=== PATIENT | female | born 1955 | race Caucasian/White ===

== ENCOUNTER 2018-12-04 19:55 | Emergency (ER) | payer OTHER, SELFPAY ==
[2018-12-04] VITALS (10 sets, daily range): BP systolic 87–120; BP diastolic 42–66; PULSE 84–102; RESP 16–17; TEMP 36.4–37; O2SAT 95–100; BMI 32.4
--- NOTE | 2018-12-04 20:22 | DI.CT.S_ITS ---
PROCEDURE: CT ABDOMEN PELVIS W CON INDICATIONS: severe pain, hx diverticulitis, failed outpatient TECHNIQUE: After the administration of intravenous contrast, 5 mm thick sections acquired from the diaphragm to the symphysis. 5 mm coronal and sagittal reformats were acquired. For radiation dose reduction, the following was used: automated exposure control, adjustment of mA and/or kV according to patient size. COMPARISON: None. FINDINGS: Image quality: Excellent. ABDOMEN: Lung bases: Lung bases are clear. Heart size is normal. Solid organs: Liver is normal in size and enhancement. Gallbladder is surgically absent. Biliary system is non dilated. Pancreas enhances normally. Spleen is normal in size and enhancement. No adrenal nodules. Kidneys demonstrate normal size and enhancement, without hydronephrosis. Peritoneum and bowel: There is no bowel obstruction. No stomach or small bowel wall thickening. Colonic diverticulosis is seen. There is short segmental wall thickening involving distal descending colon/proximal sigmoid colon with narrowing of the lumen and pericolonic fat stranding consistent with acute diverticulitis in this region. No abscess collection. No free fluid or free air. Nodes and vessels: No retroperitoneal or mesenteric adenopathy by size criteria. Aorta and inferior vena cava are normal in size. Miscellaneous: No ventral hernias. PELVIS: Genitourinary: Bladder wall thickness is normal. Uterus and bilateral adnexa shows no gross abnormality. Miscellaneous: No inguinal hernias or adenopathy. Bones: No suspicious bony lesions. No vertebral body compression fractures. IMPRESSION: 1. Findings consistent with acute diverticulitis involving distal descending colon/proximal sigmoid colon. No abscess collection. No signs of perforation. No free fluid or free air. 2. No renal stone hydronephrosis. Prior cholecystectomy. Dictated by: Severo Rich M.D. on 12/04/2018 at 21:33 Approved by: Severo Rich M.D. on 12/04/2018 at 21:35
[2018-12-04 20:30] LABS: Add Manual Diff / Slide Review NO; Basophils Absolute Auto 100 /uL (0-100); Basophils Percent Auto 0.5 % (0-2); Eosinophils Absolute Auto 100 /uL (0-450); Eosinophils Percent Auto 0.6 % (2-4); Hematocrit 41.1 % (36-46); Lymphocytes Absolute Auto 1900 /uL (1100-4500); Lymphocytes Percent Auto 11.1 % (25-40); Mean Corpuscular Hemoglobin 30.6 PG (26-34); Mean Corpuscular Volume 89.9 fL (80-100); Monocytes Absolute Auto 1200 /uL (0-900); Monocytes Percent Auto 7.4 % (3-14); Neutrophils Absolute Auto 13500 /uL (1500-7000); Neutrophils Percent Auto 80.4 % (50-75); Platelet Count 260 X10^3/uL (150-400); Red Blood Cell Count 4.58 X10^6/uL (4.0-5.2); Red Cell Distribution Width 13.3 % (11.6-14.8); White Blood Cell Count 16.8 X10^3/uL (4.5-11.0)
[2018-12-04 20:38] LABS: Lactate (Lactic Acid) 1.5 mmol/L (0.7-2.1)
[2018-12-04 20:39] LABS: Alanine Aminotransferase 33 IU/L (9-52); Albumin Globulin Ratio 1.3 (1.0-2.8); Alkaline Phosphatase 80 U/L (38-126); Aspartate Aminotransferase 29 IU/L (14-36); BUN Creatinine Ratio 16.7 (6-22); Bilirubin Total 0.5 mg/dL (0.2-1.3); Blood Urea Nitrogen 10 mg/dL (7-17); Calcium 9.2 mg/dL (8.4-10.2); Carbon Dioxide 28 mmol/L (22-32); Chloride 103 mmol/L (98-107); Estimated Glomerular Filt Rate > 60.0 mL/min (>60); Globulin 3.1 g/dL (1.7-4.1); Glucose 129 mg/dL (80-110); HEMOLYSIS < 15 (0-50); Lipase 109 U/L (23-300); Potassium 4.1 mmol/L (3.4-5.1); Sodium 137 mmol/L (137-145); Total Protein 7.1 g/dL (6.3-8.2)
[2018-12-04] MEDS: SODIUM CHLORIDE 0.9% 1,000 ML 1000 ML IV ×3 (20:48→23:40)
[2018-12-04] MEDS: ONDANSETRON 4 MG/2 ML INJ IV (20:51)
[2018-12-04] MEDS: HYDROMORPHONE 1 MG INJ 0.5 MG IV (20:51)
--- NOTE | 2018-12-04 21:03 | ED_ITS ---
HPI - Abdominal Pain General Chief Complaint: Abdominal Pain Stated Complaint: states diverticulitis Time Seen by Provider: 12/04/18 20:10 Source: patient and family Mode of arrival: ambulatory Limitations: no limitations History of Present Illness HPI narrative: 63F nonsmoker with hx of diverticulitis and hypothyroidism presents with severe LLQ pain since yesterday. She denies radiation. Her pain is worse with motion and improves with rest. She's had no N/V/D. She denies dysuria, vaginal bleeding or discharge. She's had diverticulitis in the past and this feels similar. [facility] and started on Augmentin. She went back today with worsening pain and feeling poorly. She was sent here from the clinic for a more thorough work up. MD complaint: abdominal pain Related Data Home Medications Medication Instructions Recorded Confirmed levothyroxine 137 mcg tablet 137 mcg PO DAILY 12/03/18 12/03/18 Previous Rx's Medication Instructions Recorded amoxicillin 875 mg-potassium 1 tab PO TID 7 Days #21 tab 12/03/18 clavulanate 125 mg tablet ibuprofen 600 mg tablet 600 mg PO TID PRN 5 Days #20 tab 12/03/18 ciprofloxacin HCl 500 mg PO Q12H 14 Days #28 tab 12/05/18 hydrocodone-acetaminophen 1 tab PO Q4-6H PRN #10 tab 12/05/18 metronidazole [Flagyl] 500 mg PO TID 14 Days #42 tab 12/05/18 ondansetron 4 mg PO TID-QID PRN #10 tab 12/05/18 Allergies Allergy/AdvReac Type Severity Reaction Status Date / Time No Known Drug Allergies Allergy Verified 12/03/18 15:26 Review of Systems Constitutional Denies chills, Denies fever(s), Denies lethargy and Denies weakness Eyes Denies change in vision, Denies eye discharge, Denies irritation and Denies loss of vision ENT Ears, Nose, Mouth, and Throat: Denies change in voice, Denies neck pain and Denies sore throat Cardiovascular Denies chest pain, Denies irregular heart rhythm, Denies lightheadedness, Denies palpitations, Denies dyspnea, Denies dyspnea on exertion and Denies orthopnea Respiratory Denies cough, Denies dyspnea, Denies dyspnea on exertion and Denies wheezing Gastrointestinal Gastrointestinal: Reports abdominal pain, Denies change in bowel habits, Denies diarrhea, Denies nausea and Denies vomiting Genitourinary Denies hematuria, Denies flank pain, Denies urinary incontinence and Denies urinary urgency Musculoskeletal Denies neck pain Integumentary/Breasts Denies pruritus, Denies erythema, Denies rash and Denies wounds Neurologic Denies confusion, Denies loss of vision and Denies weakness Psychiatric Denies anxiety, Denies confusion, Denies depression, Denies homicidal ideation and Denies suicidal ideation Endocrine Denies palpitations Hematologic/Lymphatic Denies easy bruising Allergic/Immunologic Denies wheezing PFSH Social History Smoking Status: Never smoker Social History Smoking Status: Never smoker Exam Narrative Exam Narrative: GENERAL: 63F appears younger than stated age, obviously uncomfortable, rubbing her LLQ HEAD: Atraumatic. Normocephalic. No temporal or scalp tenderness. EYES: Pupils equal round and reactive. Extraocular motions intact. No scleral icterus. No injection or drainage. ENT: Nose without bleeding, purulent drainage or septal hematoma. Throat without erythema, tonsillar hypertrophy or exudate. Uvula midline. Airway patent. NECK: Trachea midline. No JVD or lymphadenopathy. Supple, nontender, no meningeal signs. CARDIOVASCULAR: Regular rate and rhythm without murmurs, gallops, or rubs. RESPIRATORY: Clear to auscultation. Breath sounds equal bilaterally. No wheezes, rales, or rhonchi. GASTROINTESTINAL: Abdomen soft, tender LLQ, nondistended. No hepato- splenomegaly, or palpable masses. No guarding. EXTREMITIES: No clubbing, cyanosis, or edema. No joint tenderness, effusion, or edema noted. BACK: Nontender without deformity or crepitance. No flank tenderness. NEURO: AOx3. SKIN: No rash or erythema. Initial Vital Signs Initial Vital Signs: Vital Signs Temperature 98.5 F 12/04/18 19:59 Pulse Rate 102 H 12/04/18 19:59 Respiratory Rate 16 12/04/18 19:59 Blood Pressure 120/64 12/04/18 19:59 Pulse Oximetry 95 12/04/18 19:59 Course Orders Ordered: ED Orders 12/04/18 20:12 Complete Blood Count AUTO DIFF Stat Comprehensive Metabolic Panel Stat Lactate (Lactic Acid) Stat Lipase Stat 12/04/18 20:22 CT abdomen pelvis w con Stat 12/04/18 21:45 Blood Culture Stat Discontinued Medications Hydrocodone Bitart/Acetaminophen (Vicodin Prepack) 1 bottle MISC SEEINSTR ONE Stop: 12/05/18 00:11 Last Admin: 12/05/18 00:16 Dose: 1 bottle Hydromorphone HCl (Dilaudid) 0.5 mg IV NOW ONE Stop: 12/04/18 20:50 Last Admin: 12/04/18 20:51 Dose: 0.5 mg Sodium Chloride (Normal Saline 0.9%) 1,000 mls @ 1,000 mls/hr IV BOLUS ONE Stop: 12/04/18 21:20 Last Infusion: 12/04/18 22:27 Dose: 0 mls/hr Infusion: 12/04/18 21:19 Dose: 0 mls/hr Admin: 12/04/18 20:48 Dose: 1,000 mls/hr Sodium Chloride (Normal Saline 0.9%) 1,000 mls @ 1,000 mls/hr IV BOLUS ONE Stop: 12/04/18 23:25 Last Infusion: 12/04/18 23:39 Dose: 0 mls/hr Admin: 12/04/18 22:30 Dose: 1,000 mls/hr Sodium Chloride (Normal Saline 0.9%) 1,000 mls @ 1,000 mls/hr IV BOLUS ONE Stop: 12/05/18 00:39 Last Infusion: 12/05/18 00:29 Dose: 0 mls/hr Admin: 12/04/18 23:40 Dose: 1,000 mls/hr Levofloxacin (Levaquin) 500 mg PO NOW ONE Stop: 12/05/18 00:11 Last Admin: 12/05/18 00:16 Dose: 500 mg Ondansetron HCl (Zofran) 4 mg IV Q4HR PRN PRN Reason: Nausea And Vomiting Last Admin: 12/04/18 20:51 Dose: 4 mg Ondansetron HCl (Zofran Odt Prepack) 1 bottle MISC SEEINSTR ONE Stop: 12/05/18 00:11 Last Admin: 12/05/18 00:16 Dose: 1 bottle Vital Signs - 8 hr 12/04/18 19:59 12/04/18 21:07 12/04/18 21:51 Temperature 98.5 F 98.6 F 97.9 F Pulse Rate 102 H 89 89 Respiratory Rate 16 16 17 Blood Pressure 120/64 Blood Pressure [Left Arm] 99/53 L 92/56 L Pulse Oximetry 95 96 98 12/04/18 22:24 12/04/18 22:30 12/04/18 22:57 Temperature 97.6 F Pulse Rate 93 H 90 88 Respiratory Rate 16 16 16 Blood Pressure Blood Pressure [Left Arm] 87/42 L 89/52 L 92/57 L Pulse Oximetry 97 98 96 12/04/18 23:05 12/04/18 23:10 12/04/18 23:30 Temperature 97.8 F Pulse Rate 87 84 86 Respiratory Rate 16 16 16 Blood Pressure Blood Pressure [Left Arm] 98/64 102/57 L 92/61 Pulse Oximetry 100 100 99 12/04/18 23:40 12/05/18 00:00 Temperature 97.9 F Pulse Rate 86 87 Respiratory Rate 16 16 Blood Pressure Blood Pressure [Left Arm] 97/66 114/74 Pulse Oximetry 99 100 MDM - Abdominal Pain Lab Data Result diagrams: 12/04/18 20:12 12/04/18 20:12 Lab Results 12/04/18 12/04/18 12/04/18 Range/Units 20:12 20:12 20:12 WBC 16.8 H (4.5-11.0) X10^3/uL RBC 4.58 (4.0-5.2) X10^6/uL Hgb 14.0 (12.0-16.0) g/dL Hct 41.1 (36-46) % MCV 89.9 (80-100) fL MCH 30.6 (26-34) PG MCHC 34.0 (30-36) % RDW 13.3 (11.6-14.8) % Plt Count 260 (150-400) X10^3/uL Neut % (Auto) 80.4 H (50-75) % Lymph % (Auto) 11.1 L (25-40) % [place] % (Auto) 7.4 (3-14) % Eos % (Auto) 0.6 L (2-4) % Baso % (Auto) 0.5 (0-2) % Neut # (Auto) 98074 H (1522-4712) /uL Lymph # (Auto) 1900 (3877-6981) /uL [place] # (Auto) 1200 H (0-900) /uL Eos # (Auto) 100 (0-450) /uL Baso # (Auto) 100 (0-100) /uL Sodium 137 (137-145) mmol/L Potassium 4.1 (3.4-5.1) mmol/L Chloride 103 (98-107) mmol/L Carbon Dioxide 28 (22-32) mmol/L BUN 10 (7-17) mg/dL Creatinine 0.60 (0.52-1.04) mg/dL Estimated GFR > 60.0 (>60) mL/min BUN/Creatinine Ratio 16.7 (6-22) Glucose 129 H (80-110) mg/dL Lactate 1.5 (0.7-2.1) mmol/L Calcium 9.2 (8.4-10.2) mg/dL Total Bilirubin 0.5 (0.2-1.3) mg/dL AST 29 (14-36) IU/L ALT 33 (9-52) IU/L Alkaline Phosphatase 80 (38-126) U/L Total Protein 7.1 (6.3-8.2) g/dL Albumin 4.0 (3.5-5.0) g/dL Globulin 3.1 (1.7-4.1) g/dL Albumin/Globulin Ratio 1.3 (1.0-2.8) Lipase 109 (23-300) U/L Point of care testing: Urine Dip Bedside Urine Glucose Negative Bedside Urine Bilirubin - Negative Bedside Urine Ketone - Negative Urine Specific [place] 1.010 Bedside Urine Occult Blood - Negative Bedside Urine pH 7.0 Bedside Urine Protein - Negative Bedside Urine Urobilinogen - Negative Bedside Urine Nitrite - Negative Bedside Urine Leukocytes - Negative Esterase Imaging Data CT scan - abdomen: Radiologist's impression: diverticulitis without perforation or abscess Discharge Plan Departure Patient Disposition: Home Clinical Impression: Diverticulitis Discharge Date/Time: 12/05/18 00:31 Interventions: ED Discharge Assessment Last Done: 12/05/18 00:30 Instructions: Diverticulitis Activity Restrictions/Additional Instructions: 1. Drink plenty of fluids with frequent small sips. 2. For the next 24 hours a clear liquid diet is advised. After that please employ a brat diet which would include bananas, rice, apples, toast. 3. Please take medications as directed. STOP THE AUGMENTIN 4. Please follow-up with your doctor in the next 1-2 days. Call the office for an appointment. 5. Please return to the emergency Department for any worsening or persistent symptoms, such as increasing pain or fever. Prescriptions: New hydrocodone-acetaminophen 5-325 mg tablet 1 tab PO Q4-6H PRN (Reason: pain) Qty: 10 RF: 0 ondansetron 4 mg tablet,disintegrating 4 mg PO TID-QID PRN (Reason: nausea and vomiting) Qty: 10 RF: 0 metronidazole [Flagyl] 500 mg tablet 500 mg PO TID 14 Days Qty: 42 RF: 0 ciprofloxacin HCl 500 mg tablet 500 mg PO Q12H 14 Days Qty: 28 RF: 0 No Action levothyroxine [Synthroid] 137 mcg tablet 137 mcg PO DAILY RF: 0 amoxicillin-pot clavulanate 875-125 mg tablet 1 tab PO TID 7 Days Qty: 21 RF: 0 ibuprofen 600 mg tablet 600 mg PO TID PRN (Reason: pain) 5 Days Qty: 20 RF: 0
--- NOTE | 2018-12-04 22:25 | PC.NURSE ---
patients repeat blood pressure 87/42. Dr. Bravo notified and ordered 2nd and 3rd bag of 1000mls of NS bolus.
[2018-12-05] VITALS: BP 114/74; PULSE 87; RESP 16; TEMP 36.6; O2SAT 100
[2018-12-05] MEDS: HYDROCODONE/ACET 5/325 PREPACK 1 BOTTLE MISC (00:16)
[2018-12-05] MEDS: levoFLOXacin 250 MG TABLET 500 MG PO (00:16)
[2018-12-05] MEDS: ONDANSETRON 4 MG ODT PREPACK 1 BOTTLE MISC (00:16)
== END 2018-12-05 00:31 | disposition home or self-care (01) ==
PROVIDERS: Emergency Provider Emergency Medicine
DX: K57.92 Diverticulitis of intestine, part unspecified, without perforation or abscess without bleeding (principal)
CPT/HCPCS: 36415; 36591; 74177; 80053; 81003; 83605; 83690; 85025; 87040; 96361; 96374; 96375; 99284; 99285; J1170; J2405; Q9967